=== PATIENT | male | born 1965 | race Caucasian/White ===

== ENCOUNTER 2022-08-01 01:29 | Outpatient (CLI) | payer MEDICARE, MEDICAID, SELFPAY | END 2022-08-01 01:30 | disposition home or self-care (01) | LOC: AMB 08-17 10:15 | PROVIDERS: PCP Family Medicine; Visit Provider Family Medicine | DX: F30.9 Manic episode, unspecified (principal); F20.9 Schizophrenia, unspecified | CPT/HCPCS: A0425; A0428 ==